=== PATIENT | female | born 1960 | race Caucasian/White ===

== ENCOUNTER 2017-05-02 07:29 | Emergency (ER) | payer MEDICARE ==
[~2017-05-02] VITALS: Ht 162.6 cm; Wt 76.4 kg
[~2017-05-02 07:29] MED LIST: CARB200T4 PO; GABA300C10 PO; LAMO25TA5 PO; METF500T4 PO
[2017-05-02 07:35] VITALS: BP 109/75
[2017-05-02 08:32] LABS: HEMATOCRIT 37.2 % (34.6-47.8); HEMOGLOBIN 12.8 g/dL (11.7-16.4); WHITE BLOOD COUNT 7.5 x10^3/uL (3.4-10)
[2017-05-02 08:35] LABS: BLOOD UREA NITROGEN 15 mg/dL (7-18)
== END 2017-05-02 09:28 | disposition home or self-care (01) ==
LOC: ED 08:12
DX: L03.116 Cellulitis of left lower limb (principal); L03.115 Cellulitis of right lower limb; E11.9 Type 2 diabetes mellitus without complications
CPT/HCPCS: 36415; 80048; 82040; 85025; 99284

== ENCOUNTER 2017-06-18 05:17 | Emergency (ER) | payer MEDICARE ==
[~2017-06-18] VITALS: Ht 162.6 cm; Wt 80.9 kg
[2017-06-18 05:52] LABS: BASOPHILS # (AUTO) 0.08 x10^3/uL (0-0.1); BASOPHILS % (AUTO) 1 % (0-1); EOSINOPHILS # (AUTO) 0.08 x10^3/uL (0-0.4); EOSINOPHILS % (AUTO) 1 % (1-7); LYMPHOCYTES # (AUTO) 2.31 x10^3/uL (1-3.4); LYMPHOCYTES % (AUTO) 20 % (22-44); MD NO; MEAN CORPUSCULAR HEMOGLOBIN 29.5 pg (27.0-34.8); MEAN CORPUSCULAR VOLUME 86.7 fL (80-100); MEAN PLATELET VOLUME 7.7 fL (7.4-10.4); MONOCYTES # (AUTO) 0.75 x10^3/uL (0.2-0.8); MONOCYTES % (AUTO) 7 % (2-9); NEUTROPHILS # (AUTO) 8.07 x10^3/uL (1.8-6.8); NEUTROPHILS % (AUTO) 72 % (42-75); PLATELET COUNT 292 x10^3/uL (130-400); RED BLOOD COUNT 4.08 x10^6/uL (3.82-5.3); RED CELL DISTRIBUTION WIDTH 14.7 % (9.6-15.2)
[2017-06-18] MEDS ORDERED: KETOROLAC 30 MG/1 ML ONE (05:55)
[2017-06-18] MEDS ORDERED: DIPHENHYDRAMINE 50 MG/ML, 1ML ONE (05:55)
[2017-06-18] MEDS ORDERED: METOCLOPRAMIDE 5 MG/ML, 2ML ONE (05:56)
[2017-06-18] MEDS ORDERED: SODIUM CHLORIDE 0.9% 1,000ML IVBOLUS ONE (06:00)
[2017-06-18] MEDS ORDERED: METOCLOPRAMIDE 5 MG/ML, 2ML IVPush ONE (06:00)
[2017-06-18] MEDS ORDERED: DIPHENHYDRAMINE 50 MG/ML, 1ML IVPush ONE (06:00)
[2017-06-18] MEDS ORDERED: KETOROLAC 30 MG/1 ML IVPush ONE (06:00)
[2017-06-18] MEDS ORDERED: SODIUM CHLORIDE FLUSH 10ML SYR IVF ONE ×2 (06:00)
[2017-06-18 06:03] LABS: ALANINE AMINOTRANSFERASE 21 U/L (12-78); ALBUMIN 3.3 g/dL (3.4-5.0); ANION GAP 9 mmol/L (5-15); CALCIUM 8.2 mg/dL (8.5-10.1); CHLORIDE 108 mmol/L (98-107); CREATININE 0.83 mg/dL (0.55-1.02)
[2017-06-18 06:05] LABS: ALKALINE PHOSPHATASE 54 U/L (45-117); BILIRUBIN,TOTAL 0.6 mg/dL (0.2-1.0); TOTAL PROTEIN 7.1 g/dL (6.4-8.2)
[2017-06-18 07:54] VITALS: BP 124/79
== END 2017-06-18 07:56 | disposition home or self-care (01) ==
LOC: ED 06:33
DX: J04.0 Acute laryngitis (principal); G43.901 Migraine, unspecified, not intractable, with status migrainosus; E11.9 Type 2 diabetes mellitus without complications
CPT/HCPCS: 36415; 71045; 80053; 85025; 87081; 87880; 93005; 96374; 96375; 99285; J1200; J1885; J2765; J7030

== ENCOUNTER 2017-06-21 06:17 | Emergency (ER) | payer MEDICARE ==
[~2017-06-21] VITALS: Ht 167.6 cm; Wt 80.0 kg
[2017-06-21 06:53] LABS: BASOPHILS # (AUTO) 0.03 x10^3/uL (0-0.1); BASOPHILS % (AUTO) 0 % (0-1); EOSINOPHILS % (AUTO) 2 % (1-7); LYMPHOCYTES # (AUTO) 2.35 x10^3/uL (1-3.4); LYMPHOCYTES % (AUTO) 26 % (22-44); MD NO; MEAN CORPUSCULAR HEMOGLOBIN 29.7 pg (27.0-34.8); MEAN CORPUSCULAR HGB CONC 34.4 g/dL (32.4-35.8); MEAN CORPUSCULAR VOLUME 86.1 fL (80-100); MEAN PLATELET VOLUME 7.6 fL (7.4-10.4); MONOCYTES # (AUTO) 0.45 x10^3/uL (0.2-0.8); MONOCYTES % (AUTO) 5 % (2-9); NEUTROPHILS # (AUTO) 6.09 x10^3/uL (1.8-6.8); NEUTROPHILS % (AUTO) 67 % (42-75); PLATELET COUNT 359 x10^3/uL (130-400); RED BLOOD COUNT 4.26 x10^6/uL (3.82-5.3); RED CELL DISTRIBUTION WIDTH 14.4 % (9.6-15.2)
[2017-06-21 07:14] LABS: ALBUMIN 3.7 g/dL (3.4-5.0); ANION GAP 8 mmol/L (5-15); CALCIUM 8.5 mg/dL (8.5-10.1); CHLORIDE 110 mmol/L (98-107)
[2017-06-21 07:17] LABS: ALANINE AMINOTRANSFERASE 26 U/L (12-78); ALKALINE PHOSPHATASE 56 U/L (45-117); BILIRUBIN,TOTAL 0.4 mg/dL (0.2-1.0); TOTAL PROTEIN 7.6 g/dL (6.4-8.2)
[2017-06-21 07:18] LABS: ACETAMINOPHEN < 2 mcg/mL (10-30); SALICYLATE LEVEL < 1.7 mg/dL (2.8-20.0)
[2017-06-21 07:35] LABS: MICROSCOPIC NOT IND
[2017-06-21 07:38] LABS: AMPHETAMINE SCREEN, URINE Positive (Negative); BARBITURATE SCREEN, URINE Negative (Negative); BENZODIAZEPINE SCREEN, URINE Negative (Negative); CANNABINOID SCREEN, URINE Negative (Negative); COCAINE SCREEN, URINE Negative (Negative); METHADONE SCREEN, URINE Negative (Negative); OPIATE SCREEN, URINE Negative (Negative)
[2017-06-21 07:47] LABS: CULTURE INDICATED? NO
[2017-06-21 10:45] VITALS: BP 146/78
== END 2017-06-21 12:27 | disposition home or self-care (01) ==
LOC: MERGE 06:17 → EDBD 06:17 → ED 12:20
DX: F15.159 Other stimulant abuse with stimulant-induced psychotic disorder, unspecified (principal); F24 Shared psychotic disorder; F22 Delusional disorders; E11.9 Type 2 diabetes mellitus without complications
CPT/HCPCS: 36415; 80053; 80307; 80329; 81003; 85025; 99284; G0480

== ENCOUNTER 2017-08-14 03:39 | Emergency (ER) | payer MEDICARE, MEDICAID ==
[~2017-08-14] VITALS: Ht 162.6 cm; Wt 77.9 kg
[2017-08-14 03:58] VITALS: BP 132/82
[2017-08-14] MEDS ORDERED: METOCLOPRAMIDE 5 MG/ML, 2ML IM PRN (04:00)
[2017-08-14] MEDS ORDERED: KETOROLAC 30 MG/1 ML IM ONE (04:00)
[2017-08-14] MEDS ORDERED: DIPHENHYDRAMINE 25 MG CAPSULE PO ONE (04:00)
[2017-08-14] MEDS ORDERED: KETOROLAC 30 MG/1 ML ONE (04:05)
[2017-08-14] MEDS ORDERED: DIPHENHYDRAMINE 25 MG CAPSULE ONE (04:05)
[2017-08-14] MEDS ORDERED: METOCLOPRAMIDE 5 MG/ML, 2ML ONE (04:05)
== END 2017-08-14 05:02 | disposition home or self-care (01) ==
LOC: ED 04:56
DX: G43.909 Migraine, unspecified, not intractable, without status migrainosus (principal); E11.9 Type 2 diabetes mellitus without complications
CPT/HCPCS: 96372; 99284; J1885; J2765; Q0163

== ENCOUNTER 2018-08-28 11:20 | Emergency (ER) | payer MEDICAID, MEDICARE ==
[~2018-08-28] VITALS: Ht 162.6 cm; Wt 85.1 kg
[~2018-08-28 11:20] MED LIST changes: +METF500T17 PO; -METF500T4 PO
[2018-08-28 11:25] VITALS: BP 127/50
[2018-08-28] MEDS ORDERED: ACETAMINOPHEN 500 MG TABLET PO ONE (12:00)
[2018-08-28] MEDS ORDERED: ACETAMINOPHEN 500 MG TABLET ONE (12:07)
[2018-08-28] MEDS ORDERED: HYDROcodone/APAP 5/325 TABLET ONE (12:10)
[2018-08-28] MEDS ORDERED: HYDROcodone/APAP 5/325 TABLET PO ONE (12:30)
== END 2018-08-28 13:10 | disposition home or self-care (01) ==
LOC: ED 13:04
DX: S00.12XA Contusion of left eyelid and periocular area, initial encounter (principal); E11.9 Type 2 diabetes mellitus without complications; R51 Headache; Z72.9 Problem related to lifestyle, unspecified; Z76.0 Encounter for issue of repeat prescription; Y04.8XXA Assault by other bodily force, initial encounter; Y93.89 Activity, other specified; Y92.410 Unspecified street and highway as the place of occurrence of the external cause; Y99.8 Other external cause status
CPT/HCPCS: 70450; 70486; 99284

== ENCOUNTER 2018-09-01 15:08 | Emergency (ER) | payer MEDICARE ==
[~2018-09-01] VITALS: Ht 162.6 cm; Wt 84.5 kg
[2018-09-01 15:16] VITALS: BP 118/78
[2018-09-01] MEDS ORDERED: IBUPROFEN 800 MG TABLET PO ONE (17:00)
[2018-09-01] MEDS ORDERED: CYCLOBENZAPRINE 10 MG TABLET PO ONE (17:00)
[2018-09-01] MEDS ORDERED: CYCLOBENZAPRINE 10 MG TABLET ONE (17:08)
[2018-09-01] MEDS ORDERED: IBUPROFEN 800 MG TABLET ONE (17:08)
--- NOTE | 2018-09-01 17:43 | NUR ---
PT THREW CLIP BOARD AND PEN AT RN AFTER SIGNING D/C INSTRUCTIONS. PT STATED THAT SHE WILL BE BACK EVERYDAY UNTIL EASTER BECAUSE THAT IS WHAT GOD HAS TOLD HER TO DO. SECURITY AT BEDSIDE TO ESCORT PT OUT OF ED. PT UPRIGHT STEADY GAIT.
== END 2018-09-01 17:47 | disposition home or self-care (01) ==
LOC: ED 17:41
DX: S16.1XXA Strain of muscle, fascia and tendon at neck level, initial encounter (principal); S00.93XA Contusion of unspecified part of head, initial encounter; S20.219A Contusion of unspecified front wall of thorax, initial encounter; W01.0XXA Fall on same level from slipping, tripping and stumbling without subsequent striking against object, initial encounter; Y93.89 Activity, other specified; Y92.89 Other specified places as the place of occurrence of the external cause; Y99.8 Other external cause status
CPT/HCPCS: 70450; 72072; 72110; 72125; 99284